=== PATIENT | female | born 1945 | race American Indian/Alaskan Native ===

== ENCOUNTER 2016-10-18 11:04 | Outpatient (CLI) | payer MEDICARE ==
--- NOTE | 2016-10-18 14:44 | XRay Report ---
LUMBOSACRAL SPINE, 5 VIEWS History: Low back pain Findings: No comparison. There is normal bone mineralization. Moderate to severe degenerative disc disease and facet arthropathy are identified at L2-3, L3-4 and L4-5. There is no evidence for compression deformity, subluxation or bone lesion. The oblique images suggest moderate to severe neural foraminal narrowing at L3-4 and L4-5. Impression: Lumbar spondylosis as outlined above. If radicular symptoms are present consider further evaluation with MRI lumbar spine without contrast.
== END 2016-10-18 11:05 | disposition home or self-care (01) ==
LOC: XRAY 11:04
PROVIDERS: ATTEND Physical Medicine & Rehabilitation
DX: M47.896 Other spondylosis, lumbar region (principal); M51.37 Other intervertebral disc degeneration, lumbosacral region; M12.88 Other specific arthropathies, not elsewhere classified, other specified site
CPT/HCPCS: 72114

== ENCOUNTER 2016-11-14 09:50 | Day surgery (SDC) | payer MEDICARE ==
[~2016-11-14 09:50] MED LIST: DIPRIVAN 10 MG/ML IV ONE
--- NOTE | 2016-11-14 11:43 | Anesthesia Day of Surgery ---
Anesthesia Day of Surgery - Day of Surgery Patient Examined: Yes Patient H&P Reviewed: Yes Patient is NPO: Yes
--- NOTE | 2016-11-14 11:43 | Anesthesia Consultation ---
Anesthesia Consult and Med Hx Date of service: 11/14/16 - Airway Anesthetic Teeth Evaluation: Edentulous ROM Head & Neck: Adequate Mental/Hyoid Distance: Adequate Mallampati Class: Class II Intubation Access Assessment: Probably Good - Pulmonary Exam CTA: Yes - Cardiac Exam Cardiac Exam: RRR - Pre-Operative Health Status ASA Pre-Surgery Classification: ASA3 Proposed Anesthetic Plan: MAC - Pulmonary Hx Smoking: Yes Hx Sleep Apnea: No - Cardiovascular System Hx Hypertension: Yes (high cholesterol) - Central Nervous System Hx Psychiatric Problems: Yes (schizophrenia) - Gastrointestinal Hx Gastroesophageal Reflux Disease: Yes - Endocrine Hx Insulin Dependent Diabetes: No - Hematic Hx Anemia: No Hx Sickle Cell Disease: No - Other Systems Hx Alcohol Use: No Hx Substance Use: No Hx Cancer: No Hx Obesity: No
[2016-11-14] MEDS ORDERED: ROBINUL ONE (11:55)
[2016-11-14] MEDS ORDERED: XYLOCAINE MPF 2% ONE (11:55)
[2016-11-14] MEDS ORDERED: WATER FOR IRRIG STERILE IR ONE (12:18)
--- NOTE | 2016-11-14 12:30 | Short Stay Summary ---
Short Stay Documentation Date of service: 11/14/16 Narrative H&P: Patient presents for surveillance colonoscopy. History of polyps . Last study 6 years ago. - History Past Medical History: GERD, hypertension, hyperlipidemia Past Surgical History: total hip replacement Social history: no significant social history, smoking, no alcohol abuse, no prescription drug abuse - Allergies and Medications Current Medications: Allergies No Known Allergies Allergy (Verified 11/14/16 11:21) Home Medications Medication Instructions Recorded Confirmed Last Taken Type Haloperidol [Haloperidol] 10 mg PO DAILY 09/22/13 11/14/16 11/13/16 History RX: Spironolactone [Aldactone] 25 mg PO DAILY 09/22/13 09/22/13 Unknown History risperiDONE [Risperidone] 3 mg PO DAILY 09/22/13 11/14/16 11/13/16 History Levothyroxine 75 mg PO DAILY 11/14/16 11/14/16 11/13/16 History Lisinopril 20 mg PO DAILY 11/14/16 11/14/16 11/13/16 History Omeprazole 2 mg PO DAILY 11/14/16 11/14/16 11/13/16 History Simvastatin 10 mg PO DAILY 11/14/16 11/14/16 11/13/16 History Tizanidine Hlc 4 mg pe PO DAILY 11/14/16 11/14/16 11/13/16 History traMADol 50 mg PO DAILY 11/14/16 11/14/16 11/13/16 History Active Medications Sodium Chloride (Nacl 0.9% 1000 Ml) 1,000 mls @ 50 mls/hr IV DIRECT FELIPE Last Admin: 11/14/16 12:08 Dose: 50 mls/hr - Physical exam General appearance: no acute distress, well-nourished Integumentary: no rash, no growths, no abnormal pigmentation HEENT: Atraumatic, PERRLA, EOMI, Mucous membr. moist/pink Lungs: Clear to auscultation, Normal air movement Breasts: deferred Heart: Regular rate, Normal S1, Normal S2, No murmurs, no Gallops Gastrointestinal: normoactive bowel sounds, no tenderness, no distended, no masses, no guarding, no organomegaly Female Genitourinary: deferred Rectal Exam: normal exam-external/orifice, normal rectal tone Extremities: no ischemia, pulses intact, pulses symmetrical, No edema, normal temperature, normal color, Full ROM Neurological: Normal gait, Normal speech, Strength at 5/5 X4 ext, Normal tone, Sensation intact, Cranial nerves 3-12 NL - Brief post op/procedure progress note Date of procedure: 11/14/16 Findings: see dictated report Estimated blood loss: none Pathology: none Condition: stable - Disposition Condition at discharge: Good Disposition: DISCHARGED TO HOME OR SELFCARE - Discharge Diagnoses (1) History of colon polyps Status: Inactive Short Stay Discharge Plan Activity: other (no driving for 24 hours) Weight Bearing Status: Full Weight Bearing Diet: regular Follow up with: LIZETTE RAZA MD [Primary Care Provider] - 7 Days
--- NOTE | 2016-11-14 12:31 | Operative Report ---
Operative Report Operative Report: Date of procedure: 11/14/2016 Preprocedure diagnosis: History of colon polyps, last study 6 years ago. Post procedure diagnosis: Mild left colon diverticulosis, no recurrent polyps. Procedure: Colonoscopy to the cecum Endoscopist: Dr. Michel Anesthesia: Monitored anesthesia care per anesthesia department Estimated blood loss: 0 Medications: Monitored anesthesia care. See separate report by anesthesia for details. After careful discussion of the nature and purpose of the procedure as well as details of the technique risks benefits and alternatives the patient gave consent. Please see recent history and physical from the office. The patient was placed in the left lateral decubitus position and medicated per anesthesia. A rectal exam was performed sphincter tone was normal there were no masses palpable. The [employer] 570 scope was passed transanally and advanced under continuous direct vision without difficulty to the cecum. The colon was well prepared. The cecum was normal. The ascending colon was normal and on forward and retroflexed views. The transverse colon is normal. The descending colon and sigmoid colon revealed scattered diverticula. The rectum was normal on forward and retroflexed views. The procedure was well-tolerated overall and the patient was observed in recovery. Conclusions: Scattered left colon diverticula, no recurrent polyps. Plan: Repeat colonoscopy in 5 years if the patient remains in good health. Signed electronically: Jeremiah Michel M.D.
[2016-11-14] MEDS ORDERED: NACL 0.9% 1000 ML 1,000 ML IV SCH (13:00)
[2016-11-14 13:13] VITALS: BP 132/73
--- NOTE | 2016-11-14 14:07 | Post Anesthesia Evaluation ---
- Post Anesthesia Evaluation Patient Participated: Yes Airway Patent: Yes Stable Respiratory Function: Yes Nausea/Vomiting: No Temp > 96.8F: Yes Pain Manageable: Yes Adequeate Hydration: Yes Anesthesia Complications: No Block Receding Appropriately: Not Applicable Patient on Ventilator: No
== END 2016-11-14 09:51 | disposition home or self-care (01) ==
LOC: GIO 09:50
PROVIDERS: ATTEND Internal Medicine Gastroenterology
DX: K57.30 Diverticulosis of large intestine without perforation or abscess without bleeding (principal); K21.9 Gastro-esophageal reflux disease without esophagitis; I10 Essential (primary) hypertension; E03.9 Hypothyroidism, unspecified; E78.5 Hyperlipidemia, unspecified; Z96.649 Presence of unspecified artificial hip joint; Z79.899 Other long term (current) drug therapy; F17.210 Nicotine dependence, cigarettes, uncomplicated; Z86.010 Personal history of colon polyps; Z80.42 Family history of malignant neoplasm of prostate
CPT/HCPCS: 45378; J2704; J7030

== ENCOUNTER 2016-12-12 09:44 | Outpatient (CLI) | payer MEDICARE ==
--- NOTE | 2016-12-13 11:29 | Magnetic Resonance Report ---
MRI scan of lumbar spine: History: Low back pain, radiculopathy. Technique: Multiplanar, multisequence images were obtained without contrast injection. Findings: Conus medullaris terminates at L1 with normal signal intensity. Normal lumbar lordosis. Normal pre-and paravertebral soft tissue. Normal height of vertebral bodies. Decrease in height and signal intensity of L2-3, L3-4 and L4-L5 disc spaces with degenerative changes in the adjacent endplates and vertebral. L1-2. Normal. L2-L3. There is posterior central disc protrusion noted extending from 6 to 8:00 position with compression of the adjacent ventral aspect of thecal sac. Mild bilateral neuroforaminal narrowing secondary to diffuse disc bulge. Degenerative facet joints. No central canal spinal stenosis. L3-L4. Bilateral moderate to severe neuroforaminal narrowing secondary to degenerative diffuse disc bulge and degenerative facet joints. No central canal spinal stenosis. L4-L5. Bilateral moderate to severe neuroforamina bilaterally secondary diffuse disc bulge. No central canal spinal stenosis. Degenerative facet joints. L5-S1 degenerative facet joints. No neuroforamina or central canal spinal stenosis. Impression: Multilevel bilateral neural foraminal narrowing without central canal spinal stenosis as detailed above. Focal protrusion of disc at L2-L3 as detailed above.
== END 2016-12-12 09:45 | disposition home or self-care (01) ==
LOC: MRI 09:44
PROVIDERS: ATTEND Physical Medicine & Rehabilitation
DX: M51.16 Intervertebral disc disorders with radiculopathy, lumbar region (principal); M40.46 Postural lordosis, lumbar region
CPT/HCPCS: 72148

== ENCOUNTER 2017-07-17 11:57 | Outpatient (CLI) | payer MEDICARE ==
--- NOTE | 2017-07-17 13:37 | XRay Report ---
Right hip 2 views: History: Hip pain. Findings: There is total hip replacement noted. The stem, head of the prosthesis and the acetabular component appears anatomic and in alignment. There is large area of ossification noted around the prosthesis with old healed fracture of the proximal tibia. Impression: Findings as above. No acute changes.
== END 2017-07-17 11:58 | disposition home or self-care (01) ==
LOC: XRAY 11:57
PROVIDERS: ATTEND Physical Medicine & Rehabilitation
DX: M25.551 Pain in right hip (principal); S82.101D Unspecified fracture of upper end of right tibia, subsequent encounter for closed fracture with routine healing; Z96.641 Presence of right artificial hip joint; X58.XXXD Exposure to other specified factors, subsequent encounter

== ENCOUNTER 2017-12-27 09:48 | Outpatient (CLI) | payer MEDICARE ==
--- NOTE | 2017-12-27 16:38 | Mammography Report ---
BONE DEXA:12/27/17 09:48:00 CLINICAL: Postmenopausal. No comparison. TECHNIQUE: Two site bone DEXA performed on an Hologic scanner. FINDINGS: The average BMD of the lumbar spine L1-L4 is 1.101g/cm squared with a T-score of -0.4 and a Z-score of +2.1. The average BMD of the left hip is 0.924g/cm squared with a T-score of -0.7 and a Z-score of by 0.6. The left femoral neck BMD is 0.799g/cm squared with a T score of -1.1 and Z score of +0.5. IMPRESSION: 1. WHO classification: Normal with average fracture risk based on lumbar spine measurements. 2. WHO classification: Osteopenia with increased fracture risk based on left femoral neck measurements. RECOMMENDATION: Clinical correlation and routine screening. DEFINITIONS: BMD = Bone Mineral Density T-score = BMD related to mean peak bone mass of young adult (mean expressed in Standard Deviation) Z-score = Age matched BMD expressed in SD World Health Organization (WHO) Diagnostic Criteria Normal T-score > -1 SD Osteopenia T-score between -1 and -2.4 SD Osteoporosis T-score -2.5 SD or below NOTE: BMD is not the only risk factor for fracture. One should also consider factors such as the patient's age, risk of falling, previous osteoporotic fracture, family history of osteoporotic fractures, current smoker, and low body weight. Z-scores are not calculated if >80 years of age.
== END 2017-12-27 09:49 | disposition home or self-care (01) ==
LOC: SPVWC 09:48
PROVIDERS: ATTEND Physician Assistant Medical
DX: M85.88 Other specified disorders of bone density and structure, other site (principal); Z78.0 Asymptomatic menopausal state; Z87.81 Personal history of (healed) traumatic fracture
CPT/HCPCS: 77080